=== PATIENT | female | born 2000 | race Caucasian/White ===

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

== ENCOUNTER 2019-10-24 11:13 | Emergency (ER) | payer OTHER ==
[2019-10-24 11:18] VITALS: BP 113/76; PULSE 86; RESP 18; TEMP 98.9
[2019-10-24] MEDS ORDERED: ACET/COD 300 MG/30 MG STARTER PACK 6 TAB BTL PO STA (11:29)
--- NOTE | 2019-10-24 11:30 | ED ---
Skin/Abscess/FB HPI - General Chief complaint: Skin/Abscess/Foreign Body Stated complaint: lump on neck Time Seen by Provider: 10/24/19 11:19 Source: patient, RN notes reviewed Mode of arrival: ambulatory Limitations: no limitations - History of Present Illness Initial comments: This is a 19-year-old female presents emergency Department chief complaint of swelling on her left ear. Patient states she's had some dry open skin but states that it's been raw now has turned red and swelling noted. No fevers chills she's been taken daily. Patient has no current headache, neck stiffness. She states that his pain and swelling around her left ear and below her left. She's not had any recent ear infections no pain and diarrhea no difficulty hearing - Related Data Home Medications Medication Instructions Recorded Confirmed Atenolol [Tenormin] 25 mg PO DAILY 10/11/18 10/11/18 Methimazole 10 mg PO BID 10/11/18 10/11/18 diphenhydrAMINE [Benadryl] 25 mg PO TID PRN 10/11/18 10/11/18 Previous Rx's Medication Instructions Recorded Omeprazole 20 mg PO BID 30 Days 10/01/17 Famotidine [Pepcid] 20 mg PO BID #20 tablet 10/11/18 Ondansetron HCl [Zofran] 4 mg PO TID #20 tablet 10/11/18 diphenhydrAMINE [Benadryl] 25 mg PO QID PRN #20 capsule 10/11/18 predniSONE [Deltasone] 20 mg PO BID #10 tab 10/11/18 Cephalexin [Keflex] 500 mg PO Q6HR #40 cap 10/24/19 Ibuprofen [Motrin] 600 mg PO Q8HR PRN #20 tab 10/24/19 Allergies Allergy/AdvReac Type Severity Reaction Status Date / Time No Known Allergies Allergy Verified 10/24/19 11:18 Review of Systems ROS Statement: Those systems with pertinent positive or pertinent negative responses have been documented in the HPI. ROS Other: All systems not noted in ROS Statement are negative. Past Medical History Past Medical History: Thyroid Disorder Additional Past Medical History / Comment(s): Hpylori, Grave's Disease, gastric ulcers History of Any Multi-Drug Resistant Organisms: None Reported Past Surgical History: No Surgical Hx Reported Additional Past Surgical History / Comment(s): GI scope Past Psychological History: Anxiety, Depression Smoking Status: Never smoker Past Alcohol Use History: None Reported Past Drug Use History: None Reported General Exam Limitations: no limitations General appearance: alert, in no apparent distress Head exam: Present: atraumatic, normocephalic, normal inspection Eye exam: Present: normal appearance, PERRL, EOMI. Absent: scleral icterus, conjunctival injection, periorbital swelling ENT exam: Present: normal oropharynx, mucous membranes moist, TM's normal bilaterally. Absent: normal exam, normal external ear exam (There is no area of dry skin with an open area in pain and drainage noted in the postauricular region, there is a inferior regular lymph node palpable area is tender with pal pation surrounding erythema no mastoid tenderness) Neck exam: Present: normal inspection, full ROM, lymphadenopathy. Absent: tenderness, meningismus Respiratory exam: Present: normal lung sounds bilaterally. Absent: respiratory distress, wheezes, rales, rhonchi, stridor Cardiovascular Exam: Present: regular rate, normal rhythm, normal heart sounds. Absent: systolic murmur, diastolic murmur, rubs, gallop, clicks Course Vital Signs 10/24/19 11:16 Temperature 98.9 F Pulse Rate 86 Respiratory 18 Rate Blood Pressure 113/76 O2 Sat by Pulse 99 Oximetry Medical Decision Making - Medical Decision Making Patient has evidence of cellulitis of the postauricular region with multiple lymph nodes that are palpable patient was started on Keflex she was given very strict return parameters and advised to close follow-up. Disposition Clinical Impression: Cellulitis of postauricular region, Posterior auricular lymphadenopathy Disposition: HOME SELF-CARE Condition: Stable Instructions (If sedation given, give patient instructions): Cellulitis (ED) Additional Instructions: Please return to the Emergency Department if symptoms worsen or any other concerns. Prescriptions: Cephalexin [Keflex] 500 mg PO Q6HR #40 cap Ibuprofen [Motrin] 600 mg PO Q8HR PRN #20 tab PRN Reason: Pain Is patient prescribed a controlled substance at d/c from ED?: No Referrals: Liane Moffett MD [Primary Care Provider] - 1-2 days Time of Disposition: 11:30
== END 2019-10-24 11:46 | disposition home or self-care (01) ==
LOC: EC 11:13
DX: L03.811 Cellulitis of head [any part, except face] (principal); R59.0 Localized enlarged lymph nodes; Z79.899 Other long term (current) drug therapy
CPT/HCPCS: 99283

== ENCOUNTER → 2023-11-03 | Day surgery (SDC) | payer OTHER ==
[2023-11-01 16:17] LABS: Basophils % (A) 0 %; Eosinophils % (A) 0 %; HCT 40.9 % (34.0-46.0); Lymphocytes % (A) 32 %; MCH 30.6 pg (25.0-35.0); MCHC 34.2 g/dL (31.0-37.0); MCV 89.5 fL (80.0-100.0); Mean Platelet Volume 7.2; Monocytes # (A) 0.4 k/uL (0-1.0); Monocytes % (A) 7 %; Neutrophils # (A) 3.7 k/uL (1.3-7.7); Neutrophils % (A) 59 %; Platelet Count 270 k/uL (150-450); RBC 4.57 m/uL (3.80-5.40); RDW 12.2 % (11.5-15.5); WBC 6.3 k/uL (3.8-10.6)
[2023-11-01 16:22] LABS: African American GFR (CKD) >90 (>60 ml/min/1.73 sqM); Anion Gap 7 mmol/L; Blood Urea Nitrogen 14 mg/dL (7-17); Carbon Dioxide 28 mmol/L (22-30); Chloride 103 mmol/L (98-107); INR 0.9 (<1.2); Non-African American GFR(CKD) >90 (>60 ml/min/1.73 sqM); Partial Thromboplastin Time 24.9 sec (22.0-30.0); Potassium 4.1 mmol/L (3.5-5.1); Sodium 138 mmol/L (137-145)
[2023-11-03 09:05] VITALS: RESP 16; TEMP 98
[2023-11-03] MEDS: ALPRAZolam 0.5 MG TAB PO STA (09:08)
[2023-11-03] MEDS: DESMOPRESSIN ACETATE 18 MCG in SODIUM CHLORIDE 0.9% 50 ML IVPB ONE (09:13)
--- NOTE | 2023-11-03 11:41 | CT ---
EXAMINATION TYPE: CT biopsy renal RT DATE OF EXAM: 11/03/2023 COMPARISON: NONE HISTORY: right kidney bx CT DLP: 2048 mGycm The procedure was explained to the patient. The risks, complications, benefits, and alternatives wer e discussed and any questions were answered. Informed consent was obtained. Patient was placed pron e on the CT table and prepped and draped in the usual sterile fashion. Utilizing CT guidance, an 18 gauge core biopsy needle access into the right renal cortex was achieved and three 18 gauge core samples were obtained. The patient was stable throughout the procedure and remained stable upon discharge. IMPRESSION: Successful 18 gauge core biopsy of the kidney function.
[2023-11-03 14:02] VITALS: BP 121/84; PULSE 92
== END ==
LOC: RADPROMAIN 08:05
PROVIDERS: ATTEND Internal Medicine Nephrology
DX: R31.9 Hematuria, unspecified (principal)
CPT/HCPCS: 86900; 86901; 80051; 82565; 84520; 85025; 85610; 85730; 86850; 96365; 36415; 50200; 77012; J2597